=== PATIENT | male | born 1965 | race Caucasian/White ===

== ENCOUNTER 2024-07-11 08:55 | Emergency (ER) | payer OTHER ==
--- OUTSIDE RECORDS SUMMARY | 2024-07-11 08:59 | XMS REPORT | Continuity of Care Document ---
Author Name Unknown Address [address] [facility] [address] [id number] [facility] thconnect Address [address] [address] [address] [place] [address] Care Team Providers Care Hot Tamale Man Name Role Phone Ean Gray Attending Clinician Unavailable Payers Payer Name Policy Type Policy Number Effective Date Expirati on Date Source [employer] 53 [id number] 2023 00:00:00 [facility] Problems Condition Name Condition Details Condition Category Status Onset Date Resolution Date Last Treatment Date Treating Clinician Comments Source [id number] Nontraumat ic incomplete tear of left rotator cuff Problem [facility] [id number] Arthritis of left acromiocla vicular joint Problem [facility] [id number] Mixed hyperlipid emia Problem [facility] Mixed anxiety and depressive disorder Depression with anxiety Problem [facility] Gastroesop hageal reflux disease Gastroesop hageal reflux disease Problem [facility] [id number] Subclinica l hypothyroi dism Problem [facility] [id number] Osteopenia , unspecifie d location Problem [facility] Allergic rhinitis Allergic rhinitis Problem [facility] Insomnia Insomnia Problem [facility] Sexual dysfunctio n Sexual dysfunctio n Problem [facility] Tobacco use Tobacco use disorder Problem [facility] Seasonal allergic rhinitis Allergic rhinitis, seasonal Problem [facility] [id number] Pain, joint, shoulder, left Problem [facility] Social History Social Habit Start Date Stop Date Quantity Comments Source History of Tobacco Use [facility] Sex Assigned At [facility] Smoking Status Start Date Stop Date Source Never Smoker [facility] Medications Ordered Medication Name Filled Medication Name Start Date Stop Date Current Medication? Ordering Clinician Indication Dosage Frequency Signature (SIG) Comments Components Source Tamiflu 75 MG Tamiflu 75 MG 07-04 00:00: 00 No 1{capsu le} BID Tamiflu 75 MG Medrol 4 MG Medrol 4 MG 07-04 00:00: 00 No Medrol 4 MG Zetonna 37 MCG/ACT Zetonna 37 MCG/ACT 07-04 00:00: 00 No 1{puff_ in_each _nostri l} QD Zetonna 37 MCG/ACT Albuterol Sulfate HFA 108 (90 Base) MCG/ACT Albuterol Sulfate HFA 108 (90 Base) MCG/ACT 2023-06 0- 00:00: 00 No 2{puff_ as_need ed} 6xD Albuterol Sulfate HFA 108 (90 Base) MCG/ACT Cyclobenzap rine HCl 5 MG Cyclobenzap rine HCl 5 MG - 00:00: 00 No 1{table t_at_be dtime_a s_neede d} QD Cyclobenza samson HCl 5 MG Ketorolac 15mg Ketorolac 15mg - 00:00: 00 No 60mg [facility] Lidocaine Lidocaine - 00:00: 00 No 10mg [facility] Kenalog (Triamcinol one) Kenalog (Triamcinol one) 9- 00:00: 00 No 40mg [facility] Viagra 50 MG Viagra 50 MG No 1{table t_as_ne eded} QD Viagra 50 MG Zoloft 100 MG Zoloft 100 MG No 1{table t} QD Zoloft 100 MG Claritin 10 MG Claritin 10 MG No 1{table t} QD Claritin 10 MG Montelukast Sodium 10 MG Montelukast Sodium 10 MG No 1{table t} QD Montelukas t Sodium 10 MG Vitamin B Complex - Vitamin B Complex - No Vitamin B Complex - Levocetiriz ine Dihydrochlo ride 5 MG Levocetiriz ine Dihydrochlo ride 5 MG No 1{table t_in_th e_eveni ng} QD Levocetiri zine Dihydrochl oride 5 MG Fluticasone Propionate 50 MCG/ACT Fluticasone Propionate 50 MCG/ACT No 1{spray _in_eac h_nostr il} QD Fluticason e Propionate 50 MCG/ACT Azithromyci n 250 MG Azithromyci n 250 MG No QD Azithromyc in 250 MG Immunizations Ordered Immunization Name Filled Immunization Name Date Status Comments Source Kenalog (Triamcinolone) Kenalog (Triamcinolone) 2020-01-23 09:00:00 Completed [facility] Kenalog (Triamcinolone) Kenalog (Triamcinolone) 2019-02-06 14:56:00 Completed [facility] Afluria Afluria 2018-07-18 09:14:00 Completed [facility] Afluria Afluria 2018-07-18 09:14:00 Completed [facility] Afluria Afluria 2018-07-18 09:14:00 Completed [facility] Afluria Afluria 2018-07-18 09:14:00 Completed [facility] Afluria Afluria 2018-07-18 09:14:00 Completed [facility] Afluria Afluria 2018-03-08 10:08:00 Completed [facility] Afluria Afluria 2018-03-08 10:08:00 Completed [facility] Afluria Afluria 2018-03-08 10:08:00 Completed [facility] Afluria Afluria 2018-03-08 10:08:00 Completed [facility] Afluria Afluria 2018-03-08 10:08:00 Completed [facility] Afluria Afluria 2018-03-08 00:00:00 Completed [facility] Afluria Afluria Unknown Completed [facility] Afluria Afluria Unknown Completed [facility] Afluria Afluria Unknown Completed [facility] Afluria Afluria Unknown Completed [facility] Afluria Afluria Unknown Completed [facility] Afluria Afluria Unknown Completed [facility] Afluria Afluria Unknown Completed [facility] Afluria Afluria Unknown Completed [facility] Afluria Afluria Unknown Completed [facility] Afluria Afluria Unknown Completed [facility] Afluria Afluria Unknown Completed [facility] Afluria Afluria Unknown Completed [facility] Afluria Afluria Unknown Completed [facility] Afluria Afluria Unknown Completed [facility] Afluria Afluria Unknown Completed [facility] Afluria Afluria Unknown Completed [facility] Afluria Afluria Unknown Completed [facility] Afluria Afluria Unknown Completed [facility] Afluria Afluria Unknown Completed [facility] Afluria Afluria Unknown Completed [facility] Afluria Afluria Unknown Completed [facility] Afluria Afluria Unknown Completed [facility] Afluria Afluria Unknown Completed [facility] Afluria Afluria Unknown Completed [facility] Afluria Afluria Unknown Completed [facility] Afluria Afluria Unknown Completed [facility] Fluarix (IIV3) - SDS - 0.5mL Fluarix (IIV3) - SDS - 0.5mL Unknown Completed [facility] Vital Signs Vital Name Observation Time Observation Value Comments Judy bhagat height 2024-07-04 10:00:00 73 [in_i] [facility]mo n [facility] weight 2024-07-04 10:00:00 190 [lb_av] Comm on [facility] temperature 2024-07-04 10:00:00 98 [degF] Comm on [facility] bmi 2024-07-04 10:00:00 25.06 kg/m2 Comm on [facility] blood pressure systolic 2024-07-04 10:00:00 122 mm[Hg] [facility] blood pressure diastolic 2024-07-04 10:00:00 87 mm[Hg] [facility] height 2024-06-21 08:15:00 73 [in_i] Commo n [facility] weight 2024-06-21 08:15:00 190 [lb_av] Comm on [facility] bmi 2024-06-21 08:15:00 25.06 kg/m2 Comm on [facility] blood pressure systolic 2024-06-21 08:15:00 125 mm[Hg] [facility] blood pressure diastolic 2024-06-21 08:15:00 79 mm[Hg] [facility] height 2024-04-23 08:15:00 73 [in_i] Commo n [facility] weight 2024-04-23 08:15:00 190 [lb_av] Comm on [facility] bmi 2024-04-23 08:15:00 25.06 kg/m2 Comm on [facility] blood pressure systolic 2024-04-23 08:15:00 127 mm[Hg] [facility] blood pressure diastolic 2024-04-23 08:15:00 70 mm[Hg] [facility] height 2024-03-07 08:30:00 73 [in_i] Commo n [facility] weight 2024-03-07 08:30:00 191.0 [lb_av] Co mmon [facility] temperature 2024-03-07 08:30:00 97.9 [degF] Com [facility] bmi 2024-03-07 08:30:00 25.2 kg/m2 Com[facility] n [facility] oximetry 2024-03-07 08:30:00 98 % [facility] respiratory rate 2024-03-07 08:30:00 17 /min [facility] blood pressure systolic 2024-03-07 08:30:00 122 mm[Hg] [facility] blood pressure diastolic 2024-03-07 08:30:00 77 mm[Hg] [facility] height 2024-02-21 10:00:00 73 [in_i] Commo n [facility] weight 2024-02-21 10:00:00 191.8 [lb_av] Co [facility] temperature 2024-02-21 10:00:00 97.8 [degF] Com [facility] bmi 2024-02-21 10:00:00 25.3 kg/m2 [facility] oximetry 2024-02-21 10:00:00 98 % [facility] blood pressure systolic 2024-02-21 10:00:00 120 mm[Hg] [facility] blood pressure diastolic 2024-02-21 10:00:00 72 mm[Hg] [facility] height 2024-02-14 15:20:00 73 [in_i] [facility]mo n [facility] weight 2024-02-14 15:20:00 185 [lb_av] Comm on [facility] temperature 2024-02-14 15:20:00 98.7 [degF] Com [facility] bmi 2024-02-14 15:20:00 24.41 kg/m2 Comm on [facility] oximetry 2024-02-14 15:20:00 99 % [facility] respiratory rate 2024-02-14 15:20:00 17 /min [facility] blood pressure systolic 2024-02-14 15:20:00 126 mm[Hg] [facility] blood pressure diastolic 2024-02-14 15:20:00 76 mm[Hg] [facility] height 2023-11-24 08:00:00 73 [in_i] Commo n [facility] weight 2023-11-24 08:00:00 185 [lb_av] Comm on [facility] bmi 2023-11-24 08:00:00 24.41 kg/m2 Comm on [facility] blood pressure systolic 2023-11-24 08:00:00 124 mm[Hg] [facility] blood pressure diastolic 2023-11-24 08:00:00 87 mm[Hg] [facility] height 2023-08-24 08:10:00 73 [in_i] [facility]mo [facility] weight 2023-08-24 08:10:00 190 [lb_av] Comm on [facility] bmi 2023-08-24 08:10:00 25.06 kg/m2 Comm on [facility] blood pressure systolic 2023-08-24 08:10:00 114 mm[Hg] [facility] blood pressure diastolic 2023-08-24 08:10:00 67 mm[Hg] [facility] height 2023-06-13 10:00:00 73 [in_i] [facility] weight 2023-06-13 10:00:00 187 [lb_av] Comm on [facility] temperature 2023-06-13 10:00:00 97.4 [degF] Com mon [facility] bmi 2023-06-13 10:00:00 24.67 kg/m2 Comm on [facility] oximetry 2023-06-13 10:00:00 99 % [facility] respiratory rate 2023-06-13 10:00:00 17 /min [facility] blood pressure systolic 2023-06-13 10:00:00 107 mm[Hg] [facility] blood pressure diastolic 2023-06-13 10:00:00 67 mm[Hg] [facility] height 2023-05-25 09:20:00 73 [in_i] Commo [facility] weight 2023-05-25 09:20:00 185 [lb_av] Comm on [facility] bmi 2023-05-25 09:20:00 24.41 kg/m2 Comm on [facility] blood pressure systolic 2023-05-25 09:20:00 121 mm[Hg] [facility] blood pressure diastolic 2023-05-25 09:20:00 70 mm[Hg] [facility] height 2023-02-23 10:20:00 73 [in_i] Com[facility] n [facility] weight 2023-02-23 10:20:00 188.0 [lb_av] Co [facility] temperature 2023-02-23 10:20:00 98.1 [degF] Com mon [facility] bmi 2023-02-23 10:20:00 24.8 kg/m2 Com[facility] oximetry 2023-02-23 10:20:00 99 % [facility] respiratory rate 2023-02-23 10:20:00 18 /min [facility] blood pressure systolic 2023-02-23 10:20:00 124 mm[Hg] [facility] blood pressure diastolic 2023-02-23 10:20:00 73 mm[Hg] [facility] height 2023-01-18 08:00:00 73 [in_i] Commo n [facility] weight 2023-01-18 08:00:00 185.2 [lb_av] Co [facility] temperature 2023-01-18 08:00:00 97.3 [degF] Com mon [facility] bmi 2023-01-18 08:00:00 24.43 kg/m2 Comm on [facility] oximetry 2023-01-18 08:00:00 99 % Com[facility] respiratory rate 2023-01-18 08:00:00 17 /min [facility] blood pressure systolic 2023-01-18 08:00:00 107 mm[Hg] [facility] blood pressure diastolic 2023-01-18 08:00:00 72 mm[Hg] [facility] height 2022-11-23 11:30:00 73 [in_i] Commo n [facility] weight 2022-11-23 11:30:00 189 [lb_av] Comm on [facility] bmi 2022-11-23 11:30:00 24.93 kg/m2 Comm on [facility] height 2022-08-31 11:50:00 73 [in_i] Commo n [facility] weight 2022-08-31 11:50:00 188 [lb_av] Comm on [facility] temperature 2022-08-31 11:50:00 97.9 [degF] Com mon [facility] bmi 2022-08-31 11:50:00 24.8 kg/m2 Commo n [facility] oximetry 2022-08-31 11:50:00 100 % Commo [facility] respiratory rate 2022-08-31 11:50:00 16 /min [facility] blood pressure systolic 2022-08-31 11:50:00 110 mm[Hg] [facility] blood pressure diastolic 2022-08-31 11:50:00 75 mm[Hg] [facility] height 2022-04-27 08:00:00 73 [in_i] Commo n [facility] weight 2022-04-27 08:00:00 190 [lb_av] Comm on [facility] temperature 2022-04-27 08:00:00 97 [degF] Comm on [facility] bmi 2022-04-27 08:00:00 25.06 kg/m2 Comm on [facility] blood pressure systolic 2022-04-27 08:00:00 122 mm[Hg] [facility] blood pressure diastolic 2022-04-27 08:00:00 75 mm[Hg] [facility] height 2022-01-11 08:30:00 73 [in_i] Commo n [facility] weight 2022-01-11 08:30:00 187.9 [lb_av] Co mmon [facility] temperature 2022-01-11 08:30:00 97.0 [degF] Com mon [facility] bmi 2022-01-11 08:30:00 24.79 kg/m2 Comm on [facility] oximetry 2022-01-11 08:30:00 96 % Commo [facility] respiratory rate 2022-01-11 08:30:00 17 /min [facility] blood pressure systolic 2022-01-11 08:30:00 119 mm[Hg] [facility] blood pressure diastolic 2022-01-11 08:30:00 76 mm[Hg] [facility] height 2021-10-12 09:00:00 73 [in_i] Commo n [facility] weight 2021-10-12 09:00:00 184.1 [lb_av] Co m[facility] temperature 2021-10-12 09:00:00 97.2 [degF] Com mon [facility] bmi 2021-10-12 09:00:00 24.29 kg/m2 Comm on [facility] oximetry 2021-10-12 09:00:00 96 % Commo n [facility] respiratory rate 2021-10-12 09:00:00 17 /min [facility] blood pressure systolic 2021-10-12 09:00:00 111 mm[Hg] [facility] blood pressure diastolic 2021-10-12 09:00:00 67 mm[Hg] [facility] height 2021-09-22 07:50:00 73 [in_i] Commo n [facility] weight 2021-09-22 07:50:00 175 [lb_av] Comm on [facility] temperature 2021-09-22 07:50:00 98 [degF] Comm on [facility] bmi 2021-09-22 07:50:00 23.09 kg/m2 Comm on [facility] blood pressure systolic 2021-09-22 07:50:00 129 mm[Hg] [facility] blood pressure diastolic 2021-09-22 07:50:00 76 mm[Hg] [facility] height 2021-08-11 08:30:00 73 [in_i] Commo n [facility] weight 2021-08-11 08:30:00 186.1 [lb_av] Co on [facility] temperature 2021-08-11 08:30:00 100.3 [degF] Co [facility] bmi 2021-08-11 08:30:00 24.55 kg/m2 Comm on [facility] oximetry 2021-08-11 08:30:00 96 % Commo n [facility] respiratory rate 2021-08-11 08:30:00 18 /min [facility] blood pressure systolic 2021-08-11 08:30:00 124 mm[Hg] [facility] blood pressure diastolic 2021-08-11 08:30:00 79 mm[Hg] [facility] height 2021-06-24 15:40:00 73 [in_i] Commo n [facility] weight 2021-06-24 15:40:00 195 [lb_av] Comm on [facility] temperature 2021-06-24 15:40:00 98 [degF] Comm on [facility] bmi 2021-06-24 15:40:00 25.72 kg/m2 Comm on [facility] height 2021-06-10 11:10:00 73 [in_i] Commo n [facility] weight 2021-06-10 11:10:00 195 [lb_av] Comm on [facility] bmi 2021-06-10 11:10:00 25.72 kg/m2 Comm on [facility] blood pressure systolic 2021-06-10 11:10:00 118 mm[Hg] [facility] blood pressure diastolic 2021-06-10 11:10:00 80 mm[Hg] [facility] height 2021-05-20 09:20:00 73 [in_i] Commo n [facility] weight 2021-05-20 09:20:00 195 [lb_av] Comm on [facility] bmi 2021-05-20 09:20:00 25.72 kg/m2 Comm on [facility] blood pressure systolic 2021-05-20 09:20:00 110 mm[Hg] [facility] blood pressure diastolic 2021-05-20 09:20:00 84 mm[Hg] [facility] height 2021-03-24 08:00:00 73 [in_i] Commo n [facility] weight 2021-03-24 08:00:00 195 [lb_av] Comm on [facility] temperature 2021-03-24 08:00:00 98 [degF] Comm on [facility] bmi 2021-03-24 08:00:00 25.72 kg/m2 Comm on [facility] blood pressure systolic 2021-03-24 08:00:00 121 mm[Hg] [facility] blood pressure diastolic 2021-03-24 08:00:00 76 mm[Hg] [facility] Encounters Start Date/Time End Date/Time Encounter Type Admission Type [facility]ending [facility] Care Facility Care Department Encounter ID Source 2024-04-22 15:28:00 Outpatient Gray, Ean STLC STLC [id number] [facility] 2024-03-07 08:32:00 Outpatient Gray, Ean STLC STLMLC [id number] [facility] 2024-02-15 16:24:00 Outpatient Gray, Ean STLC STLMLC [id number] [facility] 2024-02-14 12:17:00 Outpatient Gray, Ean STLC STLMLC [id number] [facility] 2022-04-26 07:38:00 Outpatient Gray, Ean STLC STLMLC [id number] [facility] 2021-10-11 10:10:00 Outpatient Gray, Ean STLC STLMLC [id number] [facility] 2021-06-30 14:31:42 Outpatient Gray, Ean STLC STLMLC [id number] [facility] 2021-06-30 14:20:17 Outpatient Gray, Ean STLC STLMLC [id number] [facility] 2021-06-30 12:08:02 Outpatient Gray, Ean STLMLC STLMLC [id number] [facility] 2021-06-30 12:07:19 Outpatient Gray, Ean STLMLC STLMLC [id number] [facility] 2021-06-30 12:07:03 Outpatient Gray, Ean STLMLC STLMLC [id number] [facility] 2021-06-30 11:08:47 Outpatient Gray, Ean STLMLC STLMLC [id number] [facility] 2021-06-30 11:08:26 Outpatient Gray, Ean STLMLC STLMLC [id number] [facility] 2024-07-04 00:00:00 2024-07-04 00:00:00 (TEL) STLMLC STLMLC [id number] [facility] 2024-07-04 00:00:00 2024-07-04 00:00:00 OFFICE VISIT ESTAB PT LEVEL 3 STLMLC STLMLC [id number] [facility] 2024-07-04 00:00:00 2024-07-04 00:00:00 (TEL) STLMLC STLMLC [id number] [facility] 2024-06-21 00:00:00 2024-06-21 00:00:00 OFFICE VISIT ESTAB PT LEVEL 4 STLMLC STLMLC [id number] [facility] 2024-04-23 00:00:00 2024-04-23 00:00:00 OFFICE VISIT ESTAB PT LEVEL 4 STLMLC STLMLC [id number] [facility] 2024-03-07 00:00:00 2024-03-07 00:00:00 OFFICE VISIT ESTAB PT LEVEL 3 STLMLC STLMLC [id number] [facility] 2024-03-06 00:00:00 2024-03-06 00:00:00 (TEL) STLMLC STLMLC [id number] [facility] 2024-02-21 00:00:00 2024-02-21 00:00:00 PREV VISIT EST AGE 40-64 STLMLC STLMLC [id number] [facility] 2024-02-15 00:00:00 2024-02-15 00:00:00 (TEL) STLMLC STLMLC [id number] [facility] 2024-02-14 00:00:00 2024-02-14 00:00:00 (TEL) STLMLC STLMLC [id number] [facility] 2024-02-14 00:00:00 2024-02-14 00:00:00 ([place]) Nurse Visit STLMLC STLMLC [id number] [facility] 2023-11-24 00:00:00 2023-11-24 00:00:00 OFFICE VISIT ESTAB PT LEVEL 4 STLMLC STLMLC [id number] [facility] 2023-08-24 00:00:00 2023-08-24 00:00:00 OFFICE VISIT ESTAB PT LEVEL 4 STLMLC STLMLC [id number] [facility] 2023-06-13 00:00:00 2023-06-13 00:00:00 OFFICE VISIT ESTAB PT LEVEL 3 STLMLC STLMLC [id number] [facility] 2023-06-13 00:00:00 2023-06-13 00:00:00 (TEL) STLMLC STLMLC [id number] [facility] 2023-06-12 00:00:00 2023-06-12 00:00:00 (TEL) STLMLC STLMLC [id number] [facility] 2023-05-25 00:00:00 2023-05-25 00:00:00 OFFICE VISIT ESTAB PT LEVEL 3 STLMLC STLMLC [id number] [facility] 2023-02-23 00:00:00 2023-02-23 00:00:00 (WELLNESS) Wellness Visit STLMLC STLMLC [id number] [facility] 2023-01-18 00:00:00 2023-01-18 00:00:00 OFFICE VISIT ESTAB PT LEVEL 3 STLMLC STLMLC [id number] [facility] 2023-01-17 00:00:00 2023-01-17 00:00:00 (TEL) STLMLC STLMLC [id number] [facility] 2022-11-23 00:00:00 2022-11-23 00:00:00 OFFICE VISIT ESTAB PT LEVEL 3 STLMLC STLMLC [id number] [facility] 2022-09-05 00:00:00 2022-09-05 00:00:00 (WEB) STLMLC STLMLC [id number] [facility] 2022-08-31 00:00:00 2022-08-31 00:00:00 OFFICE VISIT ESTAB PT LEVEL 4 STLMLC STLMLC [id number] [facility] 2022-08-11 00:00:00 2022-08-11 00:00:00 (TEL) STLMLC STLMLC [id number] [facility] 2022-04-27 00:00:00 2022-04-27 00:00:00 OFFICE VISIT EST PT LEVEL 3 STLMLC STLMLC [id number] [facility] 2022-01-11 00:00:00 2022-01-11 00:00:00 PREV VISIT EST AGE 40-64 STLMLC STLMLC [id number] [facility] 2021-10-12 00:00:00 2021-10-12 00:00:00 OFFICE VISIT EST PT LEVEL 3 STLMLC STLMLC [id number] [facility] 2021-10-11 00:00:00 2021-10-11 00:00:00 (TEL) STLMLC STLMLC [id number] [facility] 2021-09-22 00:00:00 2021-09-22 00:00:00 OFFICE VISIT ESTAB PT LEVEL 3 STLMLC STLMLC [id number] [facility] 2021-08-11 00:00:00 2021-08-11 00:00:00 OFFICE VISIT ESTAB PT LEVEL 2 STLMLC STLMLC [id number] [facility] 2021-08-10 00:00:00 2021-08-10 00:00:00 (TEL) STLMLC STLMLC [id number] [facility] 2021-06-24 00:00:00 2021-06-24 00:00:00 OFFICE VISIT EST PT LEVEL 3 STLMLC STLMLC [id number] [facility] 2021-06-10 00:00:00 2021-06-10 00:00:00 OFFICE VISIT EST PT LEVEL 3 STLMLC STLMLC [id number] [facility] 2021-05-25 00:00:00 2021-05-25 00:00:00 (TEL) STLMLC STLMLC [id number] [facility] 2021-05-20 00:00:00 2021-05-20 00:00:00 OFFICE VISIT EST PT LEVEL 3 STLMLC STLMLC [id number] [facility] 2021-03-24 00:00:00 2021-03-24 00:00:00 (TEL) STLMLC STLMLC [id number] [facility] 2021-03-24 00:00:00 2021-03-24 00:00:00 OFFICE VISIT EST PT LEVEL 3 STLMLC STLMLC [id number] [facility] 2020-12-18 00:00:00 2020-12-18 00:00:00 Outpatient STLMLC STLMLC [id number] [facility] 2020-12-16 00:00:00 2020-12-16 00:00:00 Outpatient STLMLC STLMLC [id number] [facility] 2020-09-16 00:00:00 2020-09-16 00:00:00 Outpatient STLMLC STLMLC [id number] [facility] 2020-08-26 00:00:00 2020-08-26 00:00:00 Outpatient STLMLC STLMLC [id number] [facility] 2020-05-05 00:00:00 2020-05-05 00:00:00 Outpatient STLMLC STLMLC [id number] [facility] 2020-04-27 00:00:00 2020-04-27 00:00:00 Outpatient STLMLC STLMLC [id number] [facility] 2020-01-23 09:30:00 2020-01-23 09:30:[address] [facility] [address] [facility] Medicine [facility] [id number] [facility] 2019-10-23 08:30:00 2019-10-23 08:30:00 [facility] [id number] [facility] 2019-08-01 08:30:00 2019-08-01 08:30:00 [facility] [id number] [facility] 2019-07-29 07:58:00 2019-07-29 07:58:00 [facility] [id number] [facility] 2019-07-25 08:30:00 2019-07-25 08:30:[address] [facility] [id number] [facility] 2019-07-10 15:02:00 2019-07-10 15:02:[address] [facility] [id number] [facility] 2019-07-09 08:30:00 2019-07-09 08:30:[address] [facility] [id number] [facility] 2019-07-03 08:30:00 2019-07-03 08:30:[address] [facility] [id number] [facility] 2019-06-28 08:30:00 2019-06-28 08:30:[address] [facility] [id number] [facility] 2019-06-19 08:30:00 2019-06-19 08:30:00 [facility] [id number] [facility] 2019-06-10 08:30:00 2019-06-10 08:30:00 [facility] [id number] [facility] 2019-05-27 08:15:00 2019-05-27 08:15:[address] [facility] [id number] [facility] 2019-05-22 09:00:00 2019-05-22 09:00:00 [facility] [id number] [facility] 2019-05-15 09:00:00 2019-05-15 09:00:00 [facility] [id number] [facility] 2019-05-09 11:00:00 2019-05-09 11:00:00 [facility] [id number] [facility] 2019-04-30 08:30:00 2019-04-30 08:30:00 [facility] [id number] [facility] 2019-04-23 08:30:00 2019-04-23 08:30:00 [facility] [id number] [facility] 2019-04-15 09:15:00 2019-04-15 09:15:00 [facility] [id number] [facility] 2019-04-09 08:15:00 2019-04-09 08:15:[address] [facility] [id number] [facility] 2019-04-03 08:30:00 2019-04-03 08:30:[address] [facility] [id number] [facility] 2019-03-27 08:30:00 2019-03-27 08:30:[address] [facility] [id number] [facility] 2019-03-18 10:40:00 2019-03-18 10:40:[address] [facility] [id number] [facility] 2019-03-08 10:00:00 2019-03-08 10:00:00 [facility] [id number] [facility] 2019-03-01 08:15:00 2019-03-01 08:15:[address] [facility] [id number] [facility] 2019-02-19 08:15:00 2019-02-19 08:15:[address] [facility] [id number] [facility] 2019-02-14 08:45:00 2019-02-14 08:45:[address] [facility] [id number] [facility] 2019-02-06 14:30:00 2019-02-06 14:30:[address] [facility] [id number] [facility] 2019-01-29 08:15:00 2019-01-29 08:15:[address] [facility] [id number] [facility] 2019-01-22 08:15:00 2019-01-22 08:15:[address] [facility] [id number] [facility] 2019-01-15 08:15:00 2019-01-15 08:15:[address] [facility] [id number] [facility] 2019-01-08 09:00:00 2019-01-08 09:00:00 [facility] [id number] [facility] 2019-01-01 08:30:00 2019-01-01 08:30:00 [facility] [id number] [facility] 2018-12-24 08:45:00 2018-12-24 08:45:[address] [facility] [id number] [facility] 2018-12-18 08:30:00 2018-12-18 08:30:[address] [facility] [id number] [facility] 2018-12-12 13:15:00 2018-12-12 13:15:00 [facility] [id number] [facility] 2018-12-11 10:00:00 2018-12-11 10:00:00 [facility] [id number] [facility] 2018-12-04 09:30:00 2018-12-04 09:30:00 [facility] [id number] [facility] 2018-11-26 08:30:00 2018-11-26 08:30:00 [facility] [id number] [facility] 2018-11-19 08:30:00 2018-11-19 08:30:00 [facility] [id number] [facility] 2018-11-15 08:30:00 2018-11-15 08:30:00 [facility] [id number] [facility] 2018-10-16 08:30:00 2018-10-16 08:30:00 [facility] [id number] [facility] 2018-10-10 08:30:00 2018-10-10 08:30:00 [facility] [id number] [facility] 2018-10-03 08:30:00 2018-10-03 08:30:00 [facility] [id number] [facility] 2018-09-26 08:30:00 2018-09-26 08:30:00 [facility] [id number] [facility] 2018-09-17 08:30:00 2018-09-17 08:30:00 [facility] [id number] [facility] 2018-09-07 08:30:00 2018-09-07 08:30:00 [facility] [id number] [facility] 2018-09-05 08:30:00 2018-09-05 08:30:00 [facility] [id number] [facility] 2018-08-28 08:30:00 2018-08-28 08:30:00 [facility] [id number] [facility] 2018-08-22 08:30:00 2018-08-22 08:30:00 [facility] [id number] [facility] 2018-08-16 08:30:00 2018-08-16 08:30:00 [facility] [id number] [facility] 2018-08-09 15:30:00 2018-08-09 15:30:00 [facility] [id number] [facility] 2018-08-01 08:30:00 2018-08-01 08:30:00 [facility] [id number] [facility] 2018-07-25 08:30:00 2018-07-25 08:30:00 [facility] [id number] [facility] 2018-06-29 09:00:00 2018-06-29 09:00:00 [facility] [id number] [facility] 2018-06-06 08:30:00 2018-06-06 08:30:00 [facility] [id number] [facility] 2018-03-08 10:00:00 2018-03-08 10:00:00 [facility] [id number] [facility] 2018-03-05 10:15:00 2018-03-05 10:15:00 [facility] [id number] [facility] 2017-11-03 08:45:00 2017-11-03 08:45:00 [facility] [id number] [facility] Results Test Description Test Time Test Comments Results Result Co mments Source CBC W/AUTO [id number] 00:00:00* Test Item Value Reference Range Interpretation Comme nts NUCLEATED RBCS (test code = 92876-8) 0.0 /100 WBC'S See_Comment [Automated messa ge] The system which generated this result transmitted reference range: 0.0 /100 WBC'S. The reference range was not used to interpret this result as normal/abnormal. ABSOLUTE EOSINOPHILS (test code = 24198-1) 0.29 K/UL See_Comment [Automated messa ge] The system which generated this result transmitted reference range: 0.00-0.50 K/UL. The reference range was not used to interpret this result as normal/abnormal. ABSOLUTE LYMPHOCYTES (test code = 38684-5) 2.06 K/UL See_Comment [Automated messa ge] The system which generated this result transmitted reference range: 1.00-4.00 K/UL. The reference range was not used to interpret this result as normal/abnormal. ABSOLUTE MONOCYTES (test code = 41632-7) 0.59 K/UL See_Comment [Automated messa ge] The system which generated this result transmitted reference range: 0.20-1.00 K/UL. The reference range was not used to interpret this result as normal/abnormal. ABSOLUTE NEUTROPHILS (test code = 32981-6) 4.49 K/UL See_Comment [Automated messa ge] The system which generated this result transmitted reference range: 1.50-7.50 K/UL. The reference range was not used to interpret this result as normal/abnormal. BASOPHILS (test code = 39152-9) 1.2 % EOSINOPHILS (test code = 67658-4) 3.8 % HEMATOCRIT (test code = 09916-8) 40.1 % See_Comment [Automated messa ge] The system which generated this result transmitted reference range: 40.0-51.0 %. The reference range was not used to interpret this result as normal/abnormal. HEMOGLOBIN (test code = 718-7) 14.1 G/DL See_Comment [Automated messa ge] The system which generated this result transmitted reference range: 13.5-17.0 G/DL. The reference range was not used to interpret this result as normal/abnormal. LYMPHOCYTES (test code = 60057-9) 27.3 % MCH (test code = 70538-0) 32.0 PG See_Comment [Automated messa ge] The system which generated this result transmitted reference range: 25.0-33.0 PG. The reference range was not used to interpret this result as normal/abnormal. MCHC (test code = 29738-9) 35.2 G/DL See_Comment [Automated messa ge] The system which generated this result transmitted reference range: 31.0-36.0 G/DL. The reference range was not used to interpret this result as normal/abnormal. MCV (test code = 37217-3) 91.1 fL See_Comment [Automated messa ge] The system which generated this result transmitted reference range: 80.0-99.0 fL. The reference range was not used to interpret this result as normal/abnormal. MONOCYTES (test code = 44115-8) 7.8 % NEUTROPHILS (test code = 51948-2) 59.6 % PLATELET COUNT (test code = 27592-2) 271 K/UL See_Comment [Automated [employer] The system which generated this result transmitted reference range: 130-400 K/UL. The reference range was not used to interpret this result as normal/abnormal. RBC (test code = 24198-7) 4.40 M/UL See_Comment L [Automated [employer] The system which generated this result transmitted reference range: 4.50-6.10 M/UL. The reference range was not used to interpret this result as normal/abnormal. RDW (test code = 19710-1) 12.5 % See_Comment [Automated [employer] The system which generated this result transmitted reference range: 11.5-15.0 %. The reference range was not used to interpret this result as normal/abnormal. WBC (test code = 95654-5) 7.5 K/UL See_Comment [Automated [employer] The system which generated this result transmitted reference range: 3.5-11.0 K/UL. The reference range was not used to interpret this result as normal/abnormal. Ribs Bilateral W/ChestRibs Bilateral W/Chest
[2024-07-11] MEDS ORDERED: NA CHLORIDE 0.9% 1,000 ML ONE (09:54)
[2024-07-11] MEDS ORDERED: AZITHROMYCIN 250 MG TAB ONE (09:54)
[2024-07-11] MEDS ORDERED: FAMOTIDINE 20 MG/2 ML VIAL IV ONE (09:54)
[2024-07-11 10:40] LABS: Absolute Eosinophils 0.1 K/uL (0-0.5); Absolute Monocytes 0.8 K/uL (0.1-1.3); Basophils % 0.5 % (0-1.3); Eosinophils % 1.3 % (0-4.4); Hematocrit 42.1 % (39.6-49.0); Hemoglobin 14.2 g/dL (13.6-17.9); Lymphocytes % 22.1 % (15.3-44.8); MCH 30.8 pg (27.0-35.0); MCHC 33.8 g/dL (32.0-36.0); MCV 91.2 fL (80-100); MPV 8.2 fL (7.6-11.3); Monocytes % 8.9 % (3.3-12.3); Neutrophils % 67.2 % (41.7-73.7); Nucleated Red Blood Cells % 0.1 % (0-0); Platelets 379 thou/uL (152-406); RBC Red Blood Cell Count 4.62 M/uL (4.33-5.43); Red Cell Distribution Width 12.5 % (12.1-15.2)
[2024-07-11 10:48] LABS: PT Prothrombin Time 11.1 SECONDS (9.4-12.5); Protime INR 1.06
[2024-07-11 10:58] LABS: ALT/SGPT 39 U/L (16-61); AST/SGOT 11 U/L (15-37); Albumin 3.5 g/dL (3.4-5.0); Albumin/Globulin Ratio 1.1 (1.1-1.8); Alkaline Phosphatase 76 U/L (45-117); Anion Gap 4.2 mEq/L (5.0-15.0); BUN Blood Urea Nitrogen 15 mg/dL (7-18); Bicarbonate 30 mEq/L (21-32); Bilirubin Total 0.4 mg/dL (0.2-1.0); Globulin 3.2 g/dL (2.3-3.5); Glomerular Filtration Rate 101 ml/min (=/>90); Glucose Level 94 mg/dL (74-106); Magnesium 2.3 mg/dL (1.6-2.4); NT PRO-BNP 32 pg/mL (<125); Potassium 4.2 mEq/L (3.5-5.1); Protein, Total 6.7 g/dL (6.4-8.2); Sodium Level 140 mEq/L (136-145)
[2024-07-11 11:02] LABS: Bilirubin Direct < 0.2 mg/dL (0-0.2); Bilirubin Indirect, Calculated 0.2 mg/dL (0.2-0.8); Troponin High Sensitivity < 3.0 pg/mL (<58.9)
--- NOTE | 2024-07-11 11:21 | EKG ---
Test Date: 2024-07-11 Test Time: 09:34:03 Claim Benefit Specialist: SITA MEASUREMENT RESULTS: Intervals: Rate: 78 NH: 136 QRSD: 94 QT: 354 QTc: 403 Bard: P: 69 NH: 136 QRS: 64 T: 11 INTERPRETIVE STATEMENTS: Normal sinus rhythm Nonspecific T wave abnormality Abnormal ECG Compared to ECG 07/13/2016 19:36:53 T-wave abnormality now present Sinus bradycardia no longer present Electronically Signed On 07-11-24 11:21:10 [employer] PIER by Sd Peacock
--- NOTE | 2024-07-11 11:57 | RAD REPORT ---
EXAMINATION: CTA CHEST PE CLINICAL INDICATION: Hemoptysis TECHNIQUE: 100 cc 370 Isovue administered intravenously. This examination was performed according to an angiographic protocol with 3D post-processing. This involves 3D reconstructions, MIPs, volume rendered images and/or shaded surface rendering. One or more of the following dose reduction techniqu es were used: Automated exposure control, adjustment of the mA and/or kV according to patient size, and/or iterative reconstruction. Unless otherwise specified, incidental findings do not require dedic ated imaging follow-up. [id number]. COMPARISON: No prior exam. FINDINGS: A pulmonary embolus is not seen. An aortic aneurysm not noted. No pleural effusion. No pericardial effusion. Lungs are clear. IMPRESSION: No evidence of a pulmonary embolism
--- NOTE | 2024-07-11 11:58 | RAD REPORT ---
Procedure: Chest Single View HISTORY: Cough COMPARISON: 2017 FINDINGS: The lungs appear clear of acute infiltrate.. Lungs are hyperaerated. No significant pleural effusion noted. The heart is normal size. IMPRESSION: No acute abnormality is displayed.
--- NOTE | 2024-07-11 12:05 | EDPHYS ---
Physician Documentation [facility] Name: Delfino Stroud Age: 58 yrs Sex: Male : 1965 Arrival Date: 07/11/2024 Time: 08:55 Bed 10 Private MD: MIKE Physician Marcinao Rudolph HPI: 07/11 09:50 This 58 yrs old Male presents to ER via Ambulatory with complaints of Cough - edgar blood. 09:50 The patient or guardian reports airway noise, cough, described as mild. Onset: The edgar symptoms/episode began/occurred yesterday. Severity of symptoms: At their worst the symptoms were mild, moderate, in the emergency department the symptoms are unchanged. Modifying factors: The symptoms are alleviated by nothing, the symptoms are aggravated by nothing. Associated signs and symptoms: The patient has no apparent associated signs or symptoms. The patient has not experienced similar symptoms in the past. Historical: - Allergies: 10:15 No Known Allergies; kb3 - Home Meds: 10:15 Wellbutrin Oral [Active]; Singulair 10 mg Oral tablet [Active]; kb3 - PMHx: 10:15 Depressive disorder; Seasonal allergies; kb3 - Immunization history:: Adult Immunizations up to date, Client reports receiving the 2nd dose of the Covid vaccine, Last tetanus immunization: up to date. - Infectious Disease History:: Denies. - Family history:: not pertinent. - Social history:: Smoking status: Patient denies any tobacco usage or history of. ROS: 10:00 Constitutional: Negative for fever, chills, and weight loss, Eyes: Negative for injury, edgar pain, redness, and discharge, ENT: Negative for injury, pain, and discharge, Neck: Negative for injury, pain, and swelling, Abdomen/GI: Negative for abdominal pain, nausea, vomiting, diarrhea, and constipation, Back: Negative for injury and pain, : Negative for injury, bleeding, discharge, and swelling, MS/Extremity: Negative for injury and deformity, Skin: Negative for injury, rash, and discoloration, Neuro: Negative for headache, weakness, numbness, tingling, and seizure, Psych: Negative for depression, anxiety, suicide ideation, homicidal ideation, and hallucinations, Allergy/Immunology: Negative for hives, rash, and allergies, Endocrine: Negative for neck swelling, polydipsia, polyuria, polyphagia, and marked weight changes, Hematologic/Lymphatic: Negative for swollen nodes, abnormal bleeding, and unusual bruising, 10:00 Cardiovascular: Positive for chest pain, with cough, 10:00 Respiratory: Positive for cough, hemoptysis, shortness of breath, at rest. Exam: 10:00 Constitutional: This is a well developed, well nourished patient who is awake, alert, edgar and in no acute distress. Head/Face: Normocephalic, atraumatic. Eyes: Pupils equal round and reactive to light, extra-ocular motions intact. Lids and lashes normal. Conjunctiva and sclera are non-icteric and not injected. Cornea within normal limits. Periorbital areas with no swelling, redness, or edema. ENT: Nares patent. No nasal discharge, no septal abnormalities noted. Tympanic membranes are normal and external auditory canals are clear. Oropharynx with no redness, swelling, or masses, exudates, or evidence of obstruction, uvula midline. Mucous membranes moist. Neck: Trachea midline, no thyromegaly or masses palpated, and no cervical lymphadenopathy. Supple, full range of motion without nuchal rigidity, or vertebral point tenderness. No Meningismus. Chest/axilla: Normal chest wall appearance and motion. Nontender with no deformity. No lesions are appreciated. Cardiovascular: Regular rate and rhythm with a normal S1 and S2. No gallops, murmurs, or rubs. Normal PMI, no JVD. No pulse deficits. Respiratory: Lungs have equal breath sounds bilaterally, clear to auscultation and percussion. No rales, rhonchi or wheezes noted. No increased work of breathing, no retractions or nasal flaring. Abdomen/GI: Soft, non-tender, with normal bowel sounds. No distension or tympany. No guarding or rebound. No evidence of tenderness throughout. Back: No spinal tenderness. No costovertebral tenderness. Full range of motion. Male : Normal genitalia with no discharge or lesions. Skin: Warm, dry with normal turgor. Normal color with no rashes, no lesions, and no evidence of cellulitis. MS/ Extremity: Pulses equal, no cyanosis. Neurovascular intact. Full, normal range of motion., bilateral aka Neuro: Awake and alert, GCS 15, oriented to person, place, time, and situation. Cranial nerves II-XII grossly intact. Motor strength 5/5 in all extremities. Sensory grossly intact. Cerebellar exam normal. Normal gait. Psych: Awake, alert, with orientation to person, place and time. Behavior, mood, and affect are within normal limits. 10:00 ECG was reviewed by the Attending Physician. Vital Signs: 09:17 BP 107 / 77; Pulse 86; Resp 17; Temp 97; Pulse Ox 100% ; Weight 83.91 kg; Height 6 ft. jl7 1 in. ; Pain 0/10; 11:14 BP 113 / 66; Pulse 84; Resp 16; Pulse Ox 100% on R/A; ap3 09:17 Body Mass Index 24.41 (83.91 kg, 185.42 cm) jl7 09:17 Pain Scale: Adult jl7 MDM: 09:03 Medical Screening Exam initiated edgar 10:01 Differential Diagnosis: Obstructed Airway Bronchitis Upper Respiratory Infection edgar Sinusitis Asthma Exacerbation Viral Syndrome Pneumonia. Data reviewed: vital signs, nurses notes, lab test result(s), EKG, radiologic studies, CT scan, plain films. Consideration of Admission/Observation Escalation of care including admission/observation considered. I considered the following discharge prescriptions or medication management in the emergency department Medications were administered in the Emergency Department. See MAR. Independent interpretation of the following test(s) in the Emergency Department EKG: See my EKG interpretation above. Test considered but Not performed: Ultrasound no 2 d echo. Historians other than the Patient: pt well informed. Care significantly affected by the following chronic conditions: Hypertension. 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 07/11 09:04 Order name: Basic Metabolic Panel; Complete Time: 11: edgar 07/11 09:04 Order name: CBC with Diff; Complete Time: 11: [facility] 07/11 09:04 Order name: LFT's; Complete Time: 11:07 egdar 07/11 09:04 Order name: Magnesium; Complete Time: 11: [facility] 07/11 09:04 Order name: NT PRO-BNP; Complete Time: 11: [facility] 07/11 09:04 Order name: PT-INR; Complete Time: 11:07 [facility] 07/11 09:04 Order name: Troponin HS; Complete Time: 11:07 [facility] 07/11 09:04 Order name: XRAY Chest (1 view) [facility] 07/11 09:04 Order name: CT Chest For PE Angio [facility] 07/11 09:04 Order name: EKG; Complete Time: 09:04 [facility] 07/11 09:04 Order name: Cardiac monitoring; Complete Time: 11:04 [facility] 07/11 09:04 Order name: EKG - Nurse/Tech; Complete Time: 09:49 [facility] 07/11 09:04 Order name: IV Saline Lock; Complete Time: 11:04 [facility] 07/11 09:04 Order name: Labs collected and sent; Complete Time: 10:35 [facility] 07/11 09:04 Order name: O2 Per Protocol; Complete Time: 11:04 [facility] 07/11 09:04 Order name: O2 Sat Monitoring; Complete Time: 11:04 [facility] EC:00 Rate is 78 beats/min. Rhythm is regular. QRS [place] is Normal. MT interval is normal. QRS edgar interval is normal. QT interval is normal. No Q waves. T waves are Normal. No ST changes noted. Clinical impression: NSR w/ Non-specific ST/T Changes and No evidence of ischemia. Interpreted by me. Reviewed by me. Administered Medications: 10:12 Drug: NS 0.9% IV 500 ml 500 ml IV at 1 bolus once; to be given as a bolus over 30 kb3 minutes Volume: 500 ml; Route: IV; Rate: 1 bolus; Site: right hand; 12:17 Follow up: IV Status: Completed infusion ap3 10:12 Drug: Famotidine IVP 20 mg IVP once; dilute with 10 mL 0.9% NaCl; give over 2 minutes kb3 Route: IVP; Site: right hand; 12:17 Follow up: Response: No adverse reaction ap3 10:12 Drug: AZITHromycin PO 500 mg PO once Route: PO; kb3 12:17 Follow up: Response: No adverse reaction ap3 10:12 Drug: NS 0.9% IV 500 ml 500 ml IV at 1 bolus once; to be given as a bolus over 30 kb3 minutes Volume: 500 ml; Route: IV; Rate: 1 bolus; Site: right hand; 12:17 Follow up: IV Status: Completed infusion ap3 Disposition Summary: 07/11/24 12:05 Discharge Ordered Notes: Location: Home edgar Problem: new edgar Symptoms: have improved edgar Condition: Stable(07/11/24 12:05) edgar Diagnosis - Cough edgar - Chest pain, unspecified edgar - Hemoptysis edgar Followup: edgar - With: Private Physician - When: 2 - 3 days - Reason: Recheck today's complaints, Continuance of care, Re-evaluation by your physician Followup: edgar - With: Maxime Peres MD - When: 2 - 3 days - Reason: Recheck today's complaints, Re-evaluation by your physician Followup: edgar - With: Lorenzo Madrid MD - When: 2 - 3 days - Reason: Recheck today's complaints, Re-evaluation by your physician Discharge Instructions: - Discharge Summary Sheet edgar - Nonspecific Chest Pain, Adult edgar - Hemoptysis edgar - Cool Mist Vaporizer edgar - Nonspecific Chest Pain, Adult, [id number] edgar - Cough, Adult, [id number] edgar - Aspirin and Your Heart edgar - Cough, Adult edgar - Hemoptysis, [id number] edgar Forms: - Medication Reconciliation Form edgar - Antibiotic Education edgar - Prescription Opioid Use edgar - Patient Portal Instructions [facility] - Leadership Thank You Letter [facility] Prescriptions: - Pepcid 20 mg Oral tablet - take 1 tablet ORAL route every 12 hours for 21 days; 42 tablet; Refills: 0, [facility] Product Selection Permitted - Tessalon Perles 100 mg Oral capsule - take 2 capsule ORAL route every 8 hours As needed; 30 capsule; Refills: 0, [facility] Product Selection Permitted - Zithromax 500 mg Oral tablet - take 1 tablet ORAL route once daily for 5 days begin 07/12/24; 5 tablet; Refills: edgar 0, Product Selection Permitted Signatures: Dispatcher [employer] Marciano Morris MD MD cha Bradberry, Kelly, RN RN [email or web address] Queta Robledo RN ap3 Corrections: (The following items were deleted from the chart) 09:04 09:04 Chest For PE Angio+CT.RAD.BRZ ordered. [facility] EDND 12:05 12:05 Fair edgar hernández
--- NOTE | 2024-07-11 12:05 | ER ---
Nurse's Notes [facility] Name: Delfino Stroud Age: 58 yrs Sex: Male : 1965 Arrival Date: 07/11/2024 Time: 08:55 Bed 10 Private MD: Diagnosis: Cough;Chest pain, unspecified;Hemoptysis Presentation: 07/11 09:17 Chief complaint: Patient states: Had the flu a couple weeks ago, started coughing up jl7 blood in the morning 4 days ago. Starts as dark then tapers off and by the noon no traces of blood noted. Coronavirus screen: At this time, the client does not indicate any symptoms associated with coronavirus-19. Ebola Screen: No symptoms or risks identified at this time. Initial Sepsis Screen: Does the patient meet any 2 criteria? No. Patient's initial sepsis screen is negative. Does the patient have a suspected source of infection? No. Patient's initial sepsis screen is negative. Risk Assessment: Do you want to hurt yourself or someone else? Patient reports no desire to harm self or others. Onset of symptoms was July 09, 2024. 09:17 Method Of Arrival: Ambulatory 7 09:17 Acuity: THONG 3 jl7 Historical: - Allergies: 10:15 No Known Allergies; kb3 - Home Meds: 10:15 Wellbutrin Oral [Active]; Singulair 10 mg Oral tablet [Active]; kb3 - PMHx: 10:15 Depressive disorder; Seasonal allergies; kb3 - Immunization history:: Adult Immunizations up to date, Client reports receiving the 2nd dose of the Covid vaccine, Last tetanus immunization: up to date. - Infectious Disease History:: Denies. - Family history:: not pertinent. - Social history:: Smoking status: Patient denies any tobacco usage or history of. Screenin:15 [facility] ED Fall Risk Assessment (Adult) History of falling in the last 3 months, kb3 including since admission No falls in past 3 months (0 pts) Confusion or Disorientation No (0 pts) Intoxicated or Sedated No (0 pts) Impaired Gait No (0 pts) Mobility Assist Device Used No (0 pt) Altered Elimination No (0 pt) Score/Fall Risk Level 0 - 2 = Low Risk Oriented to surroundings. Abuse screen: Denies threats or abuse. Denies injuries from another. Nutritional screening: No deficits noted. Tuberculosis screening: No symptoms or risk factors identified. Assessment: 10:13 General: Appears in no apparent distress. comfortable, Behavior is calm, cooperative. kb3 Pain: Complains of pain in chest Pain does not radiate. Pain currently is 4 out of 10 on a pain scale. Quality of pain is described as pressure, Pain began 4 days ago. Cardiovascular: Heart tones S1 S3 present. 10:13 Cardiovascular: Capillary refill < 3 seconds Patient's skin is warm and dry. Rhythm is kb3 sinus rhythm Chest pain is described as mild, quality is pressure, is located in right left. Respiratory: Reports cough that is productive, pain with cough Airway is patent Respiratory effort is even, unlabored, Respiratory pattern is regular, Breath sounds are clear Denies shortness of breath labored breathing. GI: Patient currently denies nausea, vomiting. Vital Signs: 09:17 BP 107 / 77; Pulse 86; Resp 17; Temp 97; Pulse Ox 100% ; Weight 83.91 kg; Height 6 ft. jl7 1 in. ; Pain 0/10; 11:14 BP 113 / 66; Pulse 84; Resp 16; Pulse Ox 100% on R/A; ap3 09:17 Body Mass Index 24.41 (83.91 kg, 185.42 cm) jl7 09:17 Pain Scale: Adult jl7 ED Course: 08:55 Patient arrived in ED. im 09:03 Marciano Rudolph MD is Attending Physician. [facility] 09:20 Triage completed. jl7 09:40 Arm band placed on right wrist. Patient placed in a hallway bed. EKG completed in kb3 triage. Results shown to MD. 10:15 Patient has correct armband on for positive identification. Provided Education on: Plan kb3 of care. 10:15 No provider procedures requiring assistance completed. Inserted saline lock: 20 gauge kb3 in right hand, using aseptic technique. 10:23 XRAY Chest (1 view) In Process Unspecified. EDMS 10:35 Basic Metabolic Panel Sent. bc6 10:35 CBC with Diff Sent. bc6 10:35 LFT's Sent. bc6 10:35 Magnesium Sent. bc6 10:35 NT PRO-BNP Sent. bc6 10:35 PT-INR Sent. bc6 10:35 Troponin HS Sent. bc6 11:08 Queta Robledo, RN is Primary Nurse. ap3 11:25 Note: 22 diffusics placed in left AC for CT angio study. ls3 11:29 CT Chest For PE Angio In Process Unspecified. EDMS 12:05 Maxime Peres MD is Referral Physician. [facility] 12:05 Lorenzo Madrid MD is Referral Physician. edgar 12:17 IV discontinued, intact, bleeding controlled, No redness/swelling at site. Pressure ap3 dressing applied. Administered Medications: 10:12 Drug: NS 0.9% IV 500 ml 500 ml IV at 1 bolus once; to be given as a bolus over 30 kb3 minutes Volume: 500 ml; Route: IV; Rate: 1 bolus; Site: right hand; 12:17 Follow up: IV Status: Completed infusion ap3 10:12 Drug: Famotidine IVP 20 mg IVP once; dilute with 10 mL 0.9% NaCl; give over 2 minutes kb3 Route: IVP; Site: right hand; 12:17 Follow up: Response: No adverse reaction ap3 10:12 Drug: AZITHromycin PO 500 mg PO once Route: PO; kb3 12:17 Follow up: Response: No adverse reaction ap3 10:12 Drug: NS 0.9% IV 500 ml 500 ml IV at 1 bolus once; to be given as a bolus over 30 kb3 minutes Volume: 500 ml; Route: IV; Rate: 1 bolus; Site: right hand; 12:17 Follow up: IV Status: Completed infusion ap3 Medication: 10:15 VIS not applicable for this client. kb3 Outcome: 12:05 Discharge ordered by . [facility] 12:16 Discharged to home ambulatory, ap3 12:16 Condition: good 12:16 Discharge instructions given to patient, Instructed on discharge instructions, follow up and referral plans. medication usage, Demonstrated understanding of instructions, follow-up care, medications, Prescriptions given X 3, 12:17 Patient left the ED. ap3 Signatures: Dispatcher [employer] Marciano Morris MD MD cha Leal, Jahala, RN RN jl7 Queta Robledo RN RN ap3 Lai Dickson ls3 Elizabeth Silver RN RN kb3 Keyona Miles bc6 Wilda Angel
[2024-07-11 12:27] VITALS: TEMP 97; O2SAT 100
[2024-07-11 12:28] VITALS: BP 113/66
== END 2024-07-11 12:17 | disposition home or self-care (01) ==
LOC: ER 08:55
DX: R04.2 Hemoptysis (principal); R05.9 Cough, unspecified; R07.9 Chest pain, unspecified
CPT/HCPCS: 96361; 93005; 85025; 80048; 36415; 83735; 85610; 80076; 84484; 83880; 71275; 71045; 96374; 99284; Q9967; J7030